=== PATIENT | male | born 1995 | race African-American/Black ===

== ENCOUNTER 2023-09-23 14:48 | Emergency (ER) | payer OTHER ==
[~2023-09-23] VITALS: Ht 193 cm; Wt 87.5 kg
[2023-09-23 15:00] VITALS: BP 124/76; PULSE 57; RESP 16; TEMP 98.7; O2SAT 99
[2023-09-23] MEDS ORDERED: LIDO700A15 TP (15:37)
[2023-09-23] MEDS ORDERED: METH-653 MT (15:37)
== END 2023-09-23 15:58 | disposition home or self-care (01) ==
LOC: ER 14:48
DX: M54.50 Low back pain, unspecified (principal); M79.10 Myalgia, unspecified site; Z88.0 Allergy status to penicillin; V49.49XA Driver injured in collision with other motor vehicles in traffic accident, initial encounter; Y93.89 Activity, other specified; Y92.89 Other specified places as the place of occurrence of the external cause; Y99.8 Other external cause status
CPT/HCPCS: 99283